=== PATIENT | female | born 1980 | race Caucasian/White ===

== ENCOUNTER → 2016-06-23 | Outpatient (CLI) | payer MEDICARE, OTHER ==
[~2016-06-23] MED LIST: KEFLEX500 M1 PO; KIDNEY MED; NO MEDICATIONS; PYRIDIUM100 MG PO
--- NOTE | ~2016-06-23 | CR58 ---
[facility] A Service of [facility] RADIOLOGY TEXT RESULTS PATIENT: YAHAIRA ARENAS LOCATION: [facility] : [birth year] UNIT #: [id number] AGE: [address]: Herb Prado SEX: F ORDER DR: [id number] [place] [id number] O MR#: [id number] Acc #: [id number] NAME: YAHAIRA ARENAS : 1980 SEX: F STUDY DATE/TIME: 06/23/2016 13:06 UNIT: [facility] ROOM: STUDY DESCRIPTION: CR Cervical Spine 2 or 3 Views Attending Physician: Herb Prado M.D. Referring Physician: Herb Prado M.D. Ordering Physician: Herb Prado M.D. MEDICAL IMAGING REPORT This report is preliminary unless electronic signature is present. EXAM 3 views of the cervical spine 06/23/2016 at 13:06 HISTORY Pain on the right side of the neck radiating to the shoulder after falling 1 week ago. FINDINGS AP and lateral projections of the cervical spine show satisfactory preservation of the cervical lordosis. The cervical soft tissues are normal. All anterior and posterior elements in the cervical area are anatomically normal without identifiable fracture, dislocation, malignant lytic or sclerotic change, or arthritis. There is no congenital defect apparent. IMPRESSION Normal cervical spine. Dictated by... Delphine Mccabe M.D. THIS IS AN ELECTRONICALLY VERIFIED REPORT Delphine Mccabe M.D. at 06/24/2016 2:42 PM THOMAS/reinaldo TD: 06/23/2016 22:00 JOB #: [id number] MEDICAL IMAGING REPORT
== END | disposition home or self-care (01) ==
LOC: SRAD 13:00
DX: M54.2 Cervicalgia (principal)
CPT/HCPCS: 72040

== ENCOUNTER 2016-08-11 00:50 | Emergency (ER) | payer MEDICARE, OTHER ==
[~2016-08-11 00:50] MED LIST changes: -KIDNEY MED
[2016-08-30] MEDS ORDERED: KIDNEY MED (01:04)
== END 2016-08-11 01:12 | disposition home or self-care (01) ==
LOC: SED 00:50
DX: T63.301A Toxic effect of unspecified spider venom, accidental (unintentional), initial encounter (principal); F17.200 Nicotine dependence, unspecified, uncomplicated
CPT/HCPCS: 99283

== ENCOUNTER 2016-08-30 01:19 | Emergency (ER) | payer OTHER ==
--- NOTE | ~2016-08-30 | CT2 ---
[facility] A Service of [facility] RADIOLOGY TEXT RESULTS PATIENT: YAHAIRA ARENAS LOCATION: SED : 84 UNIT #: [id number] AGE: [address]: Lake Pedroza MD SEX: F ORDER DR: [id number] [address] [address] [id number] E MR#: [id number] Acc #: [id number] NAME: YAHIARA ARENAS : 1980 SEX: F STUDY DATE/TIME: 08/30/2016 3:04 UNIT: SED ROOM: STUDY DESCRIPTION: CT Abd and Pelv W Cont Attending Physician: Lake Pedroza M.D. Ordering Physician: Lake Pedroza M.D. Primary Care Physician: Primary Care Physician No MEDICAL IMAGING REPORT This report is preliminary unless electronic signature is present. EXAM CT abdomen and pelvis with contrast HISTORY Lower abdominal pain for ebq-xe-bhonm days, low back pain, hip pain. This CT exam was performed with one or more of the following radiation dose reduction techniques: automatic exposure control, adjustment of mA and/or kV according to patient size, and iterative reconstruction. FINDINGS Axial images performed through the abdomen and pelvis following IV and oral contrast. Multiplanar reconstructed images reviewed at a workstation Abdomen: Lung bases unremarkable. Liver, spleen, gallbladder, pancreas, kidneys and adrenal glands unremarkable. No free air, free fluid. Visualized GI tract unremarkable. The appendix is not clearly identified. Sutures are seen in the right lower quadrant which could be related to prior appendectomy. Correlate with surgical history. Retroperitoneum unremarkable. Pelvis: Bladder normal. Uterus unremarkable except for IUD. Osseous structures and soft tissues appear normal. Partially visualized are changes from breast augmentation. IMPRESSION No acute intraabdominal or intrapelvic pathology identified. The appendix is not clearly identified. Surgical sutures are seen in the right lower quadrant raises the question of possible prior appendectomy. Dictated by... Sukhjinder Yao M.D. [facility] A Service of [facility] RADIOLOGY TEXT RESULTS PATIENT: YAHAIRA ARENAS LOCATION: SED : 84 UNIT #: [id number] AGE: [address]: Lake Pedroza MD SEX: F ORDER DR: THIS IS AN ELECTRONICALLY VERIFIED REPORT Sukhjinder Yao M.D. at 08/30/2016 9:59 PM Guero TD: 08/30/2016 09:51 JOB #: [id number] MEDICAL IMAGING REPORT Page 1 of 1
[~2016-08-30 01:19] MED LIST changes: +KIDNEY MED
[2016-08-30 01:31] LABS: URINE SOURCE CLEAN CATCH
[2016-08-30 01:34] LABS: URINE APPEARANCE SL CLOUDY; URINE BILIRUBIN NEG (NEG); URINE BLOOD 3+ (NEG); URINE COLOR YELLOW; URINE GLUCOSE NEG (NORM); URINE KETONE NEG (NEG); URINE LEUKOCYTE ESTERASE 2+ (NEG); URINE NITRATE NEG (NEG); URINE PROTEIN 2+ (NEG); URINE SPECIFIC GRAVITY 1.025 (1.003-1.035)
[2016-08-30 01:37] LABS: MICRO INDICATED? YES
[2016-08-30 01:48] LABS: CULTURE INDICATED? YES; URINE BACTERIA NEG (NEG); URINE RBC 25-50 /[HPF] (0-2); URINE SQUAMOUS EPITHELIAL CELL OCCAS /[HPF]; URINE TRANSITIONAL EPI CELLS FEW /[HPF]; URINE WBC INNUM /[HPF] (0-5)
[2016-08-30 01:49] LABS: BASOPHIL# 0.1 X10e3 (0-0.3); BASOPHIL% 0.7 % (0-2.5); EOSINOPHIL# 0.2 X10e3 (0-0.7); EOSINOPHIL% 1.8 % (0.0-7.0); HEMATOCRIT 39.9 % (35.0-45.0); HEMOGLOBIN 13.3 gm/dL (12.0-16.0); LYMPHOCYTE# 2.7 X10e3 (1.0-3.5); LYMPHOCYTE% 22.6 % (17.0-45.0); MEAN CELL VOLUME 92.6 FL (83-96); MEAN CORPUSCULAR HEMOGLOBIN 30.9 PG (28-34); MEAN CORPUSCULAR HGB CONC 33.4 g/dL (30-36); MEAN PLATELET VOLUME 9.2 FL (6.5-11.5); MONOCYTE# 0.8 X10e3 (0-1.0); MONOCYTE% 7.1 % (3.0-12.0); NEUTROPHIL% 67.8 % (40-75); PLATELET COUNT 300 X10e3 (140-420); RED BLOOD COUNT 4.31 X10e (3.90-5.30); WHITE BLOOD COUNT 11.8 X10e3 (4.0-10.5)
[2016-08-30 01:49] LABS: URINE MUCUS PRESENT
[2016-08-30 01:50] LABS: DIFF IND NO
[2016-08-30 02:07] LABS: ALBUMIN SERUM 4.1 g/dL (3.5-5.0); BILIRUBIN, DIRECT 0.1 mg/dL (0.0-0.2); BILIRUBIN,INDIRECT 0.2 mg/dL (0.0-0.9); BILIRUBIN,TOTAL 0.3 mg/dL (0.2-2.0); BUN/CREATININE RATIO 13.75; CALCIUM SERUM 9.1 mg/dL (8.4-10.2); CREATININE SERUM 0.8 mg/dL (0.6-1.4); GLOM FILT RATE Estimated 96.3 mL/min (>60); PROTEIN TOTAL SERUM 7.5 g/dL (6.0-8.3)
== END 2016-08-30 03:49 | disposition home or self-care (01) ==
LOC: SED 01:19
PROVIDERS: Emergency Medicine
DX: N10 Acute pyelonephritis (principal); R19.7 Diarrhea, unspecified; F17.200 Nicotine dependence, unspecified, uncomplicated; Z87.42 Personal history of other diseases of the female genital tract
CPT/HCPCS: 36415; 74177; 80048; 80076; 81003; 83690; 84703; 85025; 87086; 96361; 96365; 96375; 99284; J0696; J1885; J2405; Q9967

== ENCOUNTER 2016-11-12 13:19 | Emergency (ER) | payer OTHER | END 2016-11-12 14:15 | disposition home or self-care (01) | LOC: SED 13:19 | DX: K64.9 Unspecified hemorrhoids (principal); K62.89 Other specified diseases of anus and rectum; F17.200 Nicotine dependence, unspecified, uncomplicated | CPT/HCPCS: 99283 ==